=== PATIENT | male | born 1965 | race Caucasian/White ===

== ENCOUNTER 2016-07-16 22:37 | Emergency (ER) | payer BC ==
[2016-07-16 22:58] VITALS: PULSE 59; RESP 16
[2016-07-16] MEDS ORDERED: DICYCLOMINE 10 MG/ML 2 ML AMP IM STA (23:25)
[2016-07-16] MEDS ORDERED: ONDANSETRON 4 MG/2 ML VIAL IVP STA (23:25)
[2016-07-16] MEDS ORDERED: SODIUM CHLORIDE 0.9% 2,000 ML IV STA (23:25)
[2016-07-16 23:41] LABS: Basophils % (A) 1 %; CH 31.4; CHCM 36.8; Eosinophils % (A) 0 %; HCT 40.1 % (39.0-53.0); HDW 2.54; HGB 14.5 gm/dL (13.0-17.5); Luc # (Auto) 0.07; Luc % (Auto) 2; Lymphocytes # (A) 0.9 k/uL (1.0-4.8); Lymphocytes % (A) 21 %; MCH 30.9 pg (25.0-35.0); MCV 85.7 fL (80.0-100.0); Mean Platelet Volume 8.3; Monocytes # (A) 0.3 k/uL (0-1.0); Monocytes % (A) 7 %; Neutrophils # (A) 2.8 k/uL (1.3-7.7); Neutrophils % (A) 69 %; RBC 4.68 m/uL (4.30-5.90); WBC 4.1 k/uL (3.8-10.6); WBC (Perox) 3.85
[2016-07-16] MEDS ORDERED: HYDROmorphone 1 MG/ML 1 ML SYRINGE IVP STA (23:44)
[2016-07-16 23:51] LABS: Appearance,Urine Clear (Clear); Bilirubin,Urine Negative (Negative); Glucose,Urine (UA) Negative (Negative); Ketones,Urine 2+ (Negative); Leukocyte Esterase,Urine Negative (Negative); Mucus,Urine Many /hpf; Nitrite,Urine Negative (Negative); Particle Count 9066; Protein,Urine 1+ (Negative); RBC,Urine 1 /hpf (0-5); Specific Gravity,Urine 1.025 (1.001-1.035); Squamous Epithelial Cell,Urine <1 /hpf (0-4); UA Billing (MACRO vs. MICRO) MICRO; Urobilinogen,Urine <2.0 mg/dL (<2.0); WBC,Urine 2 /hpf (0-5)
[2016-07-16 23:55] LABS: ALT 63 U/L (21-72); AST 36 U/L (17-59); Alkaline Phosphatase 84 U/L (38-126); Anion Gap 12 mmol/L; Blood Urea Nitrogen 17 mg/dL (9-20); Calcium 8.6 mg/dL (8.4-10.2); Carbon Dioxide 22 mmol/L (22-30); Chloride 103 mmol/L (98-107); Glucose 117 mg/dL (74-99); Non-African American GFR(MDRD) >60 (>60 ml/min/1.73 sqM); Potassium 4.4 mmol/L (3.5-5.1); Sodium 137 mmol/L (137-145); Total Bilirubin 0.6 mg/dL (0.2-1.3); Total Protein 6.6 g/dL (6.3-8.2)
--- NOTE | 2016-07-16 23:59 | ED ---
Abdominal Pain HPI - General Chief Complaint: Abdominal Pain Stated Complaint: Vomiting Time Seen by Provider: 07/16/16 23:07 Source: patient Mode of arrival: wheelchair Limitations: no limitations - History of Present Illness Initial Comments: The patient is a 51-year-old male who presents to the ED with a chief complaint of nausea, vomiting, diarrhea. Patient states that his symptoms began approximately 5 days ago. He states this started with diarrhea. He notes that his diarrhea consists of watery-appearing fluid. He notes that it did not have a follow stench. Yesterday, the patient began to have episodes of vomiting. These episodes have increased in number over the course the past 24 hours. The patient states that he's had several episodes of intense epigastric pain associated with vomiting. Patient denies any sick contacts. Patient states only occasional alcohol use. He has not had any alcohol recently. Patient denies any fevers or chills. He denies any recent antibiotic use. He denies any recent travel. Patient states that he has had a hard time keeping anything down, whether it be food or liquid, over the course the day. The patient states that he once had symptoms similar to today and was told that he had a stomach infection of some sort. Patient denies any prior abdominal surgeries. - Related Data Previous Rx's Medication Instructions Recorded Dicyclomine [Bentyl] 20 mg PO QID #20 tablet 07/17/16 Ondansetron Odt [Zofran Odt] 4 mg PO Q8HR PRN #9 tab 07/17/16 Sucralfate [Carafate] 1 gm PO ACHS 7 Days 07/17/16 Allergies Allergy/AdvReac Type Severity Reaction Status Date / Time No Known Allergies Allergy Verified 07/16/16 22:58 Review of Systems ROS Statement: Those systems with pertinent positive or pertinent negative responses have been documented in the HPI. ROS Other: All systems not noted in ROS Statement are negative. Constitutional: Reports: fever (earlier in the week). Denies: chills, weakness Eyes: Denies: eye pain, eye discharge, vision change ENT: Denies: ear pain, throat pain Respiratory: Denies: cough, dyspnea, wheezes, hemoptysis, stridor Cardiovascular: Denies: chest pain Endocrine: Reports: fatigue Gastrointestinal: Reports: abdominal pain (epigastric), nausea, vomiting, diarrhea. Denies: constipation, hematemesis, melena, hematochezia Genitourinary: Denies: urgency, dysuria, frequency, hematuria Musculoskeletal: Reports: other (generalized body aches). Denies: back pain Skin: Denies: rash, lesions Neurological: Reports: headache. Denies: weakness, numbness, paresthesias Psychiatric: Denies: anxiety, depression Past Medical History Past Medical History: No Reported History History of Any Multi-Drug Resistant Organisms: None Reported Past Surgical History: No Surgical Hx Reported Additional Past Surgical History / Comment(s): urethra repair Past Psychological History: No Psychological Hx Reported Smoking Status: Current every day smoker Past Alcohol Use History: Occasional Past Drug Use History: None Reported General Exam Limitations: no limitations General appearance: alert Head exam: Present: atraumatic, normocephalic Eye exam: Present: normal appearance, PERRL, EOMI. Absent: scleral icterus, conjunctival injection, nystagmus Pupils: Present: normal accommodation ENT exam: Present: normal exam, mucous membranes dry Neck exam: Present: normal inspection, full ROM. Absent: lymphadenopathy Respiratory exam: Present: normal lung sounds bilaterally. Absent: respiratory distress, wheezes, rales, rhonchi, stridor, chest wall tenderness Cardiovascular Exam: Present: tachycardia. Absent: systolic murmur, diastolic murmur, rubs GI/Abdominal exam: Present: soft, tenderness. Absent: distended, guarding, rebound Extremities exam: Present: normal inspection, full ROM Back exam: Present: normal inspection, full ROM Neurological exam: Present: alert, oriented X3 Psychiatric exam: Present: normal affect, normal mood Skin exam: Present: warm, dry, intact Course Vital Signs 07/16/16 22:50 Temperature 98.1 F Pulse Rate 59 L Respiratory 16 Rate Blood Pressure 112/62 O2 Sat by Pulse 96 Oximetry Medical Decision Making - Medical Decision Making The patient is a 51-year-old male who presents to ED with a chief complaint of nausea, vomiting, diarrhea. Patient also complains of abdominal pain in the epigastric region. Patient states that his symptoms began with diarrhea approximately 5 days ago. He started to have nausea and vomiting starting yesterday. Patient's pain is particularly located in the epigastric region. He notes that he does not have any sick contacts. No recent travel. Patient denies any recent antibiotic use. Patient has had multiple episodes of diarrhea. This is clear in color. Will check stool samples including stool C. diff. Bolus patient with IV fluids. Check CBC, CMP. Magnesium. Check urine. Check Lipase. Janee Villalobos, Dilaudid for pain control. Check acute abdominal series to rule out obstruction. 12:50 AM Patient states that his symptoms have resolved. Reviewed Acute Abdominal Series. No evidence of obstruction. Will discharge patient home after he receives second liter of IVF. 1:20 AM Patient resting comfortably. Will discharge home with BentylWilfredo, Carafate for home. I have counseled the patient on how to use these medications. I have encouraged him to return to the ED should his symptoms return or worsen. I have answered all of his questions to his satisfaction. - Lab Data Result diagrams: 07/16/16 23:25 07/16/16 23:25 Lab Results 07/16/16 07/16/16 07/16/16 Range/Units 23:25 23:25 23:37 WBC 4.1 (3.8-10.6) k/uL RBC 4.68 (4.30-5.90) m/uL Hgb 14.5 (13.0-17.5) gm/dL Hct 40.1 (39.0-53.0) % MCV 85.7 (80.0-100.0) fL MCH 30.9 (25.0-35.0) pg MCHC 36.0 (31.0-37.0) g/dL RDW 12.0 (11.5-15.5) % Plt Count 111 L (150-450) k/uL Neutrophils % 69 % Lymphocytes % 21 % Monocytes % 7 % Eosinophils % 0 % Basophils % 1 % Neutrophils # 2.8 (1.3-7.7) k/uL Lymphocytes # 0.9 L (1.0-4.8) k/uL Monocytes # 0.3 (0-1.0) k/uL Eosinophils # 0.0 (0-0.7) k/uL Basophils # 0.0 (0-0.2) k/uL Sodium 137 (137-145) mmol/L Potassium 4.4 (3.5-5.1) mmol/L Chloride 103 (98-107) mmol/L Carbon Dioxide 22 (22-30) mmol/L Anion Gap 12 mmol/L BUN 17 (9-20) mg/dL Creatinine 0.80 (0.66-1.25) mg/dL Est GFR (MDRD) Af Amer >60 (>60 ml/min/1.73 sqM) Est GFR (MDRD) Non-Af >60 (>60 ml/min/1.73 sqM) Glucose 117 H (74-99) mg/dL Calcium 8.6 (8.4-10.2) mg/dL Total Bilirubin 0.6 (0.2-1.3) mg/dL AST 36 (17-59) U/L ALT 63 (21-72) U/L Alkaline Phosphatase 84 (38-126) U/L Total Protein 6.6 (6.3-8.2) g/dL Albumin 4.0 (3.5-5.0) g/dL Lipase 82 (23-300) U/L Urine Color Yellow Urine Appearance Clear (Clear) Urine pH 6.0 (5.0-8.0) Ur Specific [place] 1.025 (1.001-1.035) Urine Protein 1+ H (Negative) Urine Glucose (UA) Negative (Negative) Urine Ketones 2+ H (Negative) Urine Blood Negative (Negative) Urine Nitrate Negative (Negative) Urine Bilirubin Negative (Negative) Urine Urobilinogen <2.0 (<2.0) mg/dL Ur Leukocyte Esterase Negative (Negative) Urine RBC 1 (0-5) /hpf Urine WBC 2 (0-5) /hpf Ur Squamous Epith Cells <1 (0-4) /hpf Urine Mucus Many H (None) /hpf Influenza Type A RNA (Not Detectd) Influenza Type B (PCR) (Not Detectd) 07/16/16 Range/Units 23:42 WBC (3.8-10.6) k/uL RBC (4.30-5.90) m/uL Hgb (13.0-17.5) gm/dL Hct (39.0-53.0) % MCV (80.0-100.0) fL MCH (25.0-35.0) pg MCHC (31.0-37.0) g/dL RDW (11.5-15.5) % Plt Count (150-450) k/uL Neutrophils % % Lymphocytes % % Monocytes % % Eosinophils % % Basophils % % Neutrophils # (1.3-7.7) k/uL Lymphocytes # (1.0-4.8) k/uL Monocytes # (0-1.0) k/uL Eosinophils # (0-0.7) k/uL Basophils # (0-0.2) k/uL Sodium (137-145) mmol/L Potassium (3.5-5.1) mmol/L Chloride (98-107) mmol/L Carbon Dioxide (22-30) mmol/L Anion Gap mmol/L BUN (9-20) mg/dL Creatinine (0.66-1.25) mg/dL Est GFR (MDRD) Af Amer (>60 ml/min/1.73 sqM) Est GFR (MDRD) Non-Af (>60 ml/min/1.73 sqM) Glucose (74-99) mg/dL Calcium (8.4-10.2) mg/dL Total Bilirubin (0.2-1.3) mg/dL AST (17-59) U/L ALT (21-72) U/L Alkaline Phosphatase (38-126) U/L Total Protein (6.3-8.2) g/dL Albumin (3.5-5.0) g/dL Lipase (23-300) U/L Urine Color Urine Appearance (Clear) Urine pH (5.0-8.0) Ur Specific [place] (1.001-1.035) Urine Protein (Negative) Urine Glucose (UA) (Negative) Urine Ketones (Negative) Urine Blood (Negative) Urine Nitrate (Negative) Urine Bilirubin (Negative) Urine Urobilinogen (<2.0) mg/dL Ur Leukocyte Esterase (Negative) Urine RBC (0-5) /hpf Urine WBC (0-5) /hpf Ur Squamous Epith Cells (0-4) /hpf Urine Mucus (None) /hpf Influenza Type A RNA Not Detected (Not Detectd) Influenza Type B (PCR) Not Detected (Not Detectd) - EKG Data -: EKG Interpreted by Me 07/16/16 23:55 EKG demonstrates NSR with a rate of 50. There are no concerning ST T changes. The SD and QRS intervals are within normal limits. Disposition Clinical Impression: Nausea and vomiting, Diarrhea Disposition: HOME SELF-CARE Condition: Good Instructions: Acute Nausea and Vomiting (ED), Acute Diarrhea (ED), Dehydration (ED) Additional Instructions: Please return to the ED should you have worsening symptoms while at home. Prescriptions: Dicyclomine [Bentyl] 20 mg PO QID #20 tablet Ondansetron Odt [Zofran Odt] 4 mg PO Q8HR PRN #9 tab PRN Reason: Nausea Sucralfate [Carafate] 1 gm PO ACHS 7 Days Referrals: Joy Pennington MD [Primary Care Provider] - 07/19/16 (Please follow up with Dr. Pennington on Tuesday to ensure that your symptoms are improving) Time of Disposition: 01:29
--- NOTE | 2016-07-17 00:27 | XR ---
EXAM: XR Abdomen Complete With XR Chest. CLINICAL HISTORY: Reason: Abdominal pain. Nausea and Vomiting TECHNIQUE: Frontal view of the chest, frontal view of the abdomen/pelvis and upright view of the abdomen. COMPARISON: No relevant prior studies available. FINDINGS: Lungs: Unremarkable. No consolidation. Pleural spaces: Unremarkable. No pneumothorax. Heart: Unremarkable. No cardiomegaly. Mediastinum: Unremarkable. Free air: None. Gastrointestinal tract: There are few scattered air-fluid levels present, seen within nondilated bowel loops that are primarily colonic, may include one or a few nondilated small bowel loops as well. No grossly dilated bowel loops seen. Visualized organs and vessels: Left pelvic calcifications are indeterminate, statistically phleboliths. Bones: No acute abnormality. Mild degenerative changes including hips. IMPRESSION: Scattered air-fluid levels within nondilated bowel loops, nonspecific, perhaps a mild ileus.
[2016-07-17] MEDS ORDERED: ONDANSETRON 4 MG ODT STARTER PACK 2 TAB BTL PO STA (02:25)
[2016-07-17 02:51] VITALS: BP 121/73; TEMP 98.2
== END 2016-07-17 02:25 | disposition home or self-care (01) ==
LOC: EC 22:37
DX: R11.2 Nausea with vomiting, unspecified (principal); R19.7 Diarrhea, unspecified; R10.13 Epigastric pain; F17.200 Nicotine dependence, unspecified, uncomplicated
CPT/HCPCS: 36415; 93005; 80053; 83690; 85025; 81001; 87502; 74022; 99284; 96374; 96375; 96361 ×2; 96372; J0500; J2405; J1170; S0119

== ENCOUNTER → 2016-07-21 | Outpatient (CLI) | payer BC ==
--- NOTE | 2016-07-21 16:33 | US ---
EXAMINATION TYPE: US abdomen limited DATE OF EXAM: 07/21/2016 4:20 PM COMPARISON: No previous CLINICAL HISTORY: Epigastric Abd Pain R10.13,R53.83 FATIGUE. Epigastric pain and N/V x 9 days, patien t not NPO, ate 4 hours ago EXAM MEASUREMENTS: Liver Length: 16.9 cm Gallbladder Wall: 0.2 cm CBD: 0.3 cm Right Kidney: 11.8 x 5.5 x 5.6 cm Pancreas: visualized portions wnl, limited by overlying midline bowel gas Liver: wnl Gallbladder: wnl Evidence for sonographic Carrion's sign: yes CBD: wnl Right Kidney: 0.8cm hypoechoic area mid pole, dilated renal pelvis IMPRESSION: 1. Small renal cortical cyst. Otherwise unremarkable study.
== END | disposition home or self-care (01) ==
LOC: RADUSWWP 15:58
PROVIDERS: ATTEND Family Medicine
DX: N28.1 Cyst of kidney, acquired (principal)
CPT/HCPCS: 76705

== ENCOUNTER 2022-01-05 14:03 | Emergency (ER) | payer BC ==
[2022-01-05 14:27] VITALS: BP 154/92; PULSE 63; RESP 18; TEMP 97
[2022-01-05] MEDS ORDERED: LIDOCAINE 1% INJ 10MG/ML (20 ML MDV) SQ ONE (14:47)
[2022-01-05] MEDS ORDERED: HYDROcodone/APAP 10-325MG 1 EACH TAB PO ONE (14:57)
[2022-01-05] MEDS ORDERED: DIPH,PERTUS(ACELL)TETVAC-LF 0.5 ML VIAL IM ONE (14:58)
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
== END 2022-01-05 16:33 | disposition home or self-care (01) ==
LOC: EC 14:03
DX: S01.511A Laceration without foreign body of lip, initial encounter (principal); Z23 Encounter for immunization; W22.09XA Striking against other stationary object, initial encounter; Y93.89 Activity, other specified
CPT/HCPCS: 90715; 99282; 12051; 90471; J2001